=== PATIENT | female | born 1950 | race Hispanic/Latino ===

== ENCOUNTER → 2017-12-14 | Outpatient (CLI) | payer OTHER ==
[~2017-12-14] MED LIST: LIDOCAINE 1%-EPI 1:100,000 20 ML VIAL IJ ONE; LIDOCAINE HCL MPF 1% 5ML VIAL ONE; SODIUM BICARB 50MEQ 50ML VIAL ONE
[2017-12-14 10:05] LABS: INR 0.91 (0.85-1.15); PARTIAL THROMBOPLASTIN TIME 28.1 SEC (26.3-35.5); PROTHROMBIN TIME 9.6 SEC (9.6-11.6)
== END | disposition home or self-care (01) ==
LOC: RAH 09:26
PROVIDERS: ATTEND Internal Medicine Hematology & Oncology
DX: R59.0 Localized enlarged lymph nodes (principal); E11.9 Type 2 diabetes mellitus without complications; D48.7 Neoplasm of uncertain behavior of other specified sites; Z98.890 Other specified postprocedural states; Z82.49 Family history of ischemic heart disease and other diseases of the circulatory system; Z83.3 Family history of diabetes mellitus; Z80.0 Family history of malignant neoplasm of digestive organs
CPT/HCPCS: 36415; 38505; 85610; 85730; 88305; J3490 ×3